=== PATIENT | female | born 1975 | race Caucasian/White ===

== ENCOUNTER 2023-08-05 09:34 | Day surgery (SDC) | payer OTHER ==
[~2023-08-05] VITALS: Ht 157.5 cm; Wt 81.6 kg
[2023-08-05] MEDS ORDERED: MIDAZOLAM 2 MG/2 ML VIAL ONE (11:25)
[2023-08-05] MEDS ORDERED: fentaNYL citrate 0.05 MG/ML VIAL ONE (11:25)
[2023-08-05] MEDS: MIDAZOLAM 2 MG/2 ML VIAL IVP ONE (11:28)
[2023-08-05] MEDS: fentaNYL citrate 0.05 MG/ML VIAL IVP ONE (11:29)
[2023-08-05] MEDS: LIDOCAINE 2% 100 MG/5 ML UJET TP ONE (11:42)
== END 2023-08-05 12:50 | disposition home or self-care (01) ==
LOC: MDS 09:34 → MMU 09:35 → MDS 12:50
PROVIDERS: ATTEND Internal Medicine Gastroenterology
DX: K59.00 Constipation, unspecified (principal); R10.13 Epigastric pain; E11.9 Type 2 diabetes mellitus without complications; Z98.891 History of uterine scar from previous surgery; Z79.899 Other long term (current) drug therapy; Z98.890 Other specified postprocedural states
CPT/HCPCS: 43235; 45378; 82948; J2250; J3010